=== PATIENT | female | born 2000 | race Caucasian/White ===

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

== ENCOUNTER 2020-06-23 03:57 | Emergency (ER) | payer SELFPAY ==
[~2020-06-23] VITALS: Ht 167.6 cm; Wt 68.2 kg
[2020-06-23 04:38] VITALS: TEMP 98
[2020-06-23 04:59] LABS: BASO % 0.5 % (0.0-2.0); EOS # 0.1 (0.0-0.7); EOS % 0.8 % (0-4.0); GRAN # 5.2 (1.4-6.5); GRAN % 71.1 % (42.2-75.2); HEMATOCRIT 39.5 % (35.0-45.0); HEMOGLOBIN 12.6 g/dl (12.0-15.0); LYMPH # 1.5 (1.2-3.4); LYMPH % 20.9 % (20.0-51.0); MEAN CELL VOLUME 81 fl (80.0-95.0); MEAN CORPUSCULAR HEMOGLOBIN 26 pg (26.0-32.0); MEAN CORPUSCULAR HGB CONC 32 g/dl (33.0-37.0); MEAN PLATELET VOLUME 10.5 fl (7.4-10.4); MONO # 0.5 (0.1-0.6); MONO % 6.7 % (1.7-9.3); PLATELET COUNT 226 K/mm3 (130-400); RED BLOOD COUNT 4.87 M/mm3 (4.10-5.30); REDCELL DISTRIBUTION WIDTH-CV 15.3 % (11.5-14.5)
[2020-06-23 05:12] LABS: ALBUMIN 4.7 gm/dL (3.5-5.0); BILIRUBIN,TOTAL 0.7 mg/dL (0.0-1.0); CALCIUM 9.5 mg/dL (8.4-10.2); CREATININE, serum 0.7 (0.52-1.25); POTASSIUM 3.7 mmol/L (3.4-5.0); TOTAL PROTEIN 8.3 gm/dL (6.4-8.2)
[2020-06-23 05:46] LABS: COLLECTION METHOD CLEAN CATCH
[2020-06-23 05:53] LABS: PH 9 (5-8); SQUAMOUS EPITHELIAL 0-2 /hpf; URINE APPEARANCE Clear; URINE BACTERIA None Seen /hpf; URINE BILIRUBIN Negative (NEGATIVE); URINE BLOOD Negative (NEGATIVE); URINE COLOR Yellow; URINE GLUCOSE Negative (NEGATIVE); URINE KETONE Negative (NEGATIVE); URINE LEUKOCYTE ESTERASE Trace (NEGATIVE); URINE NITRATE Negative (NEGATIVE); URINE PROTEIN(semi-quant) 1+ (NEGATIVE); URINE RBC 0-2 /hpf; URINE UROBILINOGEN Negative (NEGATIVE)
[2020-06-23] MEDS ORDERED: CARAFATE 1GM1 G PO (06:48)
[2020-06-23] MEDS ORDERED: PROTONIX 40MG T40 MG PO (06:48)
[2020-06-23] MEDS ORDERED: ZOFRAN ODT4 MG PO (06:48)
[2020-06-23 07:10] VITALS: BP 121/65; PULSE 88
[2020-06-23] MEDS ORDERED: ZOFRAN 4MG T4 MG/TAB PO (23:13)
== END 2020-06-23 07:14 | disposition home or self-care (01) ==
LOC: COL.ER 03:57
PROVIDERS: Family Medicine
DX: R10.13 Epigastric pain (principal)
CPT/HCPCS: J2405; J7030; Q9967

== ENCOUNTER 2020-06-23 21:47 | Emergency (ER) | payer SELFPAY ==
[~2020-06-23] VITALS: Ht 167.6 cm; Wt 68.2 kg
[~2020-06-23 21:47] MED LIST changes: +CARAFATE 1GM1 G PO; +PROTONIX 40MG T40 MG PO; +ZOFRAN ODT4 MG PO
[2020-06-23 21:51] VITALS: TEMP 98.2
[2020-06-23] MEDS ORDERED: ZOFRAN 4MG T4 MG/TAB PO (23:13)
[2020-06-23 23:24] VITALS: BP 124/80; PULSE 82
== END 2020-06-23 23:24 | disposition home or self-care (01) ==
LOC: COL.ER 21:47
DX: B34.9 Viral infection, unspecified (principal); Z20.822 Contact with and (suspected) exposure to COVID-19